=== PATIENT | female | born 1955 | race Caucasian/White ===

== ENCOUNTER 2021-08-20 19:22 | Emergency (ER) | payer SELFPAY ==
[2021-08-20] MEDS ORDERED: Lidocaine 1% 5 ML VIAL INJECT ONE (20:31)
[2021-08-20] MEDS ORDERED: Diphtheria,Pertussis(Acell),Tetanus Vaccine 0.5 ML Syringe IM ONE (20:33)
[2021-08-20] MEDS ORDERED: valACYclovir 500 MG Tab PO ONE (21:01)
[2021-08-20] MEDS ORDERED: valACYclovir 500 MG Tab PO STA (21:01)
== END 2021-08-20 21:22 | disposition home or self-care (01) ==
LOC: MW.ED 19:22
DX: S61.012A Laceration without foreign body of left thumb without damage to nail, initial encounter (principal); B02.9 Zoster without complications; E11.9 Type 2 diabetes mellitus without complications; E78.00 Pure hypercholesterolemia, unspecified; E03.9 Hypothyroidism, unspecified; Z88.1 Allergy status to other antibiotic agents; Z88.2 Allergy status to sulfonamides; Z79.4 Long term (current) use of insulin; Z79.899 Other long term (current) drug therapy; Z23 Encounter for immunization; W26.8XXA Contact with other sharp object(s), not elsewhere classified, initial encounter
CPT/HCPCS: 12001; 90471; 90715; 99283; A9270